=== PATIENT | female | born 1975 ===

== ENCOUNTER 2024-12-27 08:16 | Day surgery (SDC) | payer OTHER ==
--- NOTE | 2024-12-23 13:21 | NUR ---
PHONE CALL TO PT MESSAGE LEFT AT [phone]
--- NOTE | 2024-12-23 14:11 | NUR ---
pt returned call and left message that she understands instructions of no food aftermidnight on 12-26-24 and needs to have a form setter/driver for the trip home. Tryed to call back but no answer.
--- NOTE | 2024-12-24 12:57 | NUR ---
PHONE CALL TO PATIENT SLOAN HOLLY
[~2024-12-27] VITALS: Ht 160 cm; Wt 50.0 kg
[~2024-12-27 08:16] MED LIST: CEFAZOLIN SODIUM 2 GM/20 ML SYR IV SCH; IBLOOD GLUCOSE TEST STRIP 1 EA TEST VI PRN; ISIBLOOM 28 DA1 EACH PO; LACTATED RINGER'S 1,000 ML IV SCH; LIDOCAINE HCL 1% 5 ML SDV INJ ONE; TRAZODONE HCL50 MG PO; WELLBUTRIN XL150 MG PO
[2024-12-27 08:39] VITALS: BP 125/68
[2024-12-27] MEDS ORDERED: KETOROLAC TROMETHAMINE 30 MG/ML VIAL ONE ×2 (09:38→09:59)
[2024-12-27] MEDS ORDERED: propofoL 200 MG/20 ML VIAL ONE ×2 (09:59→10:00)
[2024-12-27] MEDS ORDERED: ondansetron HCL 4 MG/2 ML VIAL ONE (09:59)
[2024-12-27] MEDS ORDERED: ACETAMINOPHEN 1,000 MG/100 ML VIAL ONE (09:59)
[2024-12-27] MEDS ORDERED: LIDOCAINE HCL 2% 5 ML SDV ONE ×2 (09:59→11:26)
[2024-12-27] MEDS ORDERED: KETAMINE in NS 50 MG/5 ML SYR ONE (09:59)
[2024-12-27] MEDS ORDERED: fentaNYL citrate 100 MCG/2 ML VIAL ONE (09:59)
[2024-12-27] MEDS ORDERED: DEXAMETHASONE SOD PHOS 4 MG/ML VIAL ONE (09:59)
[2024-12-27] MEDS ORDERED: droPERidol 5 MG/2 ML VIAL IV PRN (11:00)
[2024-12-27] MEDS ORDERED: NALOXONE HCL 0.4 MG SYR IV PRN (11:00)
[2024-12-27] MEDS ORDERED: ondansetron HCL 4 MG/2 ML VIAL IV PRN (11:00)
[2024-12-27] MEDS ORDERED: IBLOOD GLUCOSE TEST STRIP 1 EA TEST VI PRN (11:00)
[2024-12-27] MEDS ORDERED: fentaNYL citrate 50 MCG/ML SDV IV PRN (11:00)
[2024-12-27] MEDS ORDERED: HYDROCODONE/ACETA 5/325 TAB PO PRN (11:30)
[2024-12-27] MEDS ORDERED: KETOROLAC TROMETHAMINE 15 MG/ML VIAL IV PRN (11:30)
[2024-12-27] MEDS ORDERED: DICLOFENAC SODI75 MG PO (11:35)
[2024-12-27] MEDS ORDERED: HYDROCODON-ACE1 EA10 PO (11:36)
[2024-12-27 11:56] VITALS: BP 127/67
--- NOTE | 2024-12-27 12:04 | NUR ---
1155 PT ARRIVED TO DAY SURGERY VIA STREACHER. PT AWAKE AND ORIENTED. PT REPORTS NO PAIN OR NAUSEA AT THIS TIME. ALL VITALS TAKEN. IV ASSESSED. PT SPOUSE IN ROOM. REPORT TAKEN FROM DAVID Zuniga RN. PT HAS JELLO AND ORANGE JUICE AND WATER AT [facility]. PT ALREADY SIPPING ON PO WATER. BREATHING EQUAL AND UNLABORED. PT HAS CALL LIGHT WITHIN REACH. DISCHARGE CRITERIA GONE OVER WITH PT AND SPOUSE. PT UNDERSTANDING AT THIS TIME.
--- NOTE | 2024-12-27 12:19 | OR ---
[facility] [address], [place] [address] Signed DATE OF OPERATION: 12/27/2024 SURGEON: Brea Carrasco MD PREOPERATIVE DIAGNOSIS: Medial meniscus tear, right knee. POSTOPERATIVE DIAGNOSIS: Medial meniscus tear, right knee. PROCEDURE PERFORMED: Right knee arthroscopy with partial medial meniscectomy. TUG HAND: . BLOOD LOSS: Minimal. BRIEF HISTORY: Janelle is a 49-year-old female with pain and instability in her right knee. She had a previous scope without any significant improvement in symptoms. Risks and benefits of operative treatment were discussed with her and she elected to proceed. DESCRIPTION OF PROCEDURE: Once consent was obtained she was taken to the operating room. After adequate anesthesia she was placed on the OR table. The left leg was flexed, abducted and externally rotated on a well-padded leg yadav. The right was placed in well-padded leg yadav with no tourniquet. The leg was then prepped and draped in a standard sterile fashion. The portal sites were injected with 0.25% Marcaine with epinephrine. Standard inferolateral and superolateral portals were made. The scope was introduced into knee. ARTHROSCOPIC FINDINGS: The patella was noted to be well centered and no significant chondromalacia. Medial and lateral gutters were clear. ACL and PCL were intact. Lateral compartment was intact. Medial compartment showed a large horizontal tear from the posteromedial corner extending all the way almost to the lateral end. This was unstable and there was a large undersurface flap. DESCRIPTION OF OPERATION: Electronically Signed By: BREA CARRASCO MD 12/27/24 1219 PATIENT NAME: JANELLE GARCIA OPERATIVE REPORT DATE OF : 79 REPORT #: [id number] PHYSICIAN: BREA CARRASCO MD PCP: DOROTHY LE REPORT IS CONFIDENTIAL AND NOT TO BE RELEASED WITHOUT AUTHORIZATION [facility] [address], [place] [address] Signed Standard inferomedial portal was established using a spinal needle. The straight and curved biters were then used to trim the meniscus tear back and feather it forward. This was then smoothed using shaver and all debris was evacuated. procedure was about a 50% meniscectomy. The scope was then withdrawn. Portals were closed with 3-0 nylon and the knee was injected with 60 mg Toradol. Incisions were closed with 3-0 nylon and dressed with Adaptic, ABD, and Vitor wrap. She tolerated the procedure well. All sponge, needle, and instrument counts were correct. Brea Carrasco MD BA/SAURABHL /[id number] Copies: ~ Electronically Signed By: BREA CARRASCO MD 12/27/24 1219 PATIENT NAME: JANELLE GARCIA OPERATIVE REPORT DATE OF : 79 REPORT #: [id number] PHYSICIAN: BREA CARRASCO MD PCP: DOROTHY LE REPORT IS CONFIDENTIAL AND NOT TO BE RELEASED WITHOUT AUTHORIZATION
--- NOTE | 2024-12-27 12:24 | NUR ---
12/27/24 1224 [place] 1133- PT ARRIVES TO PACU, SEMI LU POSITION, AWAKE BUT VERY DROWSY. PT JOKING WITH STAFF, ON ROOM AIR, BREATHING EVEN AND NON LABORED. DRESSING IN PLACE TO RIGHT KNEE, CDI, ICE AND ELEVATED. ABD SOFT, NON DISTENDED. ALL MONITORS IN PLACE. LR INFUSING TO LW IV. 1140- PT DROWSY BUT AWAKE AND CONVERSING WITH STAFF. REQUESTING WATER AND CHAPSTICK. DENIES PAIN AND NAUSEA. 1143- ICE WATER PROVIDED. 1155- PT TAKEN BACK TO DAY SURGERY, DROWSY BUT ANSWERING QUESTIONS APPROPRIATELY. LR HANGING, FAMILY AT BEDSIDE. REPORT TO LAURA IBARRA AT BEDSIDE, CARE OF PT TURNED OVER AT THIS TIME.
[2024-12-27 12:59] VITALS: BP 117/56
--- NOTE | 2024-12-27 13:15 | NUR ---
1250- PT IS UP TO USE THE RESTROOM AND IS ABLE TO AMBULATE INDEPENDENTLY. PT IS ABLE TO VOID. 1255- VITAL SIGNS OBTAINED AND DISCHARGE INFORMATION IS GONE OVER AND EDUCATION PROVIDED. ALL QUESTIONS AND CONCERNS ANSWERED. IV REMOVED. 1309- PT IS ABLE TO AMBULATE TO WHEELCHAIR INDEPENDENTLY. PT HAS ALL BELONGINGS, ICE AND EDCATION AND PAPERWORK. PT DC FROM DAY SURGERY AND IS ABLE TO GET INTO FAMILY VEHICLE WITH HER PARTNER DRIVING.
[2024-12-27] MEDS ORDERED: SEVOFLURANE 250 ML BTL INH ONE (16:15)
[2024-12-27] MEDS ORDERED: DICLOFENAC SOD 75 MG TABEC PO SCH (21:00)
== END 2024-12-27 13:09 | disposition home or self-care (01) ==
LOC: DS 08:16
PROVIDERS: ATTEND Specialist
PROC: 0SBC4ZZ Excision of Right Knee Joint, Percutaneous Endoscopic Approach (ICD-10-PCS; principal; 2024-12-27 11:30)
DX: S83.241A Other tear of medial meniscus, current injury, right knee, initial encounter (principal); X58.XXXA Exposure to other specified factors, initial encounter; Z88.2 Allergy status to sulfonamides; Z79.899 Other long term (current) drug therapy
CPT/HCPCS: 01400; 84703; J0131; J0690; J1100; J1885; J2003; J2405; J2704; J3010; J3490; J7121